=== PATIENT | female | born 1985 | race Caucasian/White ===

== ENCOUNTER 2021-04-02 22:23 | Emergency (ER) | payer MEDICAID, SELFPAY ==
[2021-04-02 22:26] VITALS: BP 130/78; PULSE 95; RESP 18; TEMP 35.9; O2SAT 100
--- NOTE | 2021-04-03 00:26 | ED.EAR ---
HPI - Ear Problem General Chief complaint: Ear Stated complaint: bilat ear pain, ST Time Seen by Provider: 04/02/21 23:39 History of Present Illness HPI Narrative: Patient is a 35-year-old female who presents ER with right ear pain. Worsening over the last 3 days. No numbness or tingling to the face but has some tingling in her tongue. No drainage from her ear. She has not submerged her head in a pool/hot tub/freshwater. No difficulty hearing. Pain worsens with manipulation. No fevers or chills or sweats. Review of Systems Constitutional: Constitutional: Denies chills and Denies fever(s) ENT: Denies nasal congestion and Denies sore throat Comments: Right ear pain, no change in hearing Respiratory: Respiratory: Denies cough and Denies dyspnea PMFSH Past Medical History Medical History (Updated 04/03/21 @ 00:32 by Jorge Obrien MD) Anxiety Otitis externa Surgical History Surgical History (Updated 04/03/21 @ 00:27 by Jorge Obrien MD) No history of previous surgery Exam Narrative: Exam Narrative: GENERAL: Well-appearing, well-nourished, and in no acute distress. HEAD: Normocephalic, atraumatic. EYES: PERRL and EOMI. ENT: Mucous membranes moist. No pharyngeal erythema or tonsillar exudate. No vesicles or rash to the face. Right external ear appears normal with normal internal auditory canal and opaque tympanic membrane. No vesicles or pustules seen within the ear canal. Mastoid on the right side nontender and is not swollen. Normal left ear exam. NEURO: Alert and oriented x3. PSYCH: Normal mood and affect. Course Course Emergency Course: We will treat with antibiotics for internal and external ear infection given pain with manipulation. Will give ENT referral if symptoms or not improving. Vital Signs Vital signs: Vital Signs Temperature 96.7 F L 04/02/21 22: Pulse Rate 95 04/02/21 22: Respiratory Rate 18 04/02/21 22: Blood Pressure 130/78 04/02/21 22: Pulse Oximetry 100 04/02/21 22: Temperature 96.7 F L 04/02/21 22: Pulse Rate 95 04/02/21 22: Respiratory Rate 18 04/02/21 22:26 Blood Pressure 130/78 04/02/21 22:26 Pulse Oximetry 100 04/02/21 22:26 Medical Decision Making Vital Signs Vital Signs: Vital Signs Temperature 96.7 F L 04/02/21 22:26 Pulse Rate 95 04/02/21 22:26 Respiratory Rate 18 04/02/21 22:26 Blood Pressure 130/78 04/02/21 22:26 Pulse Oximetry 100 04/02/21 22:26 Temperature 96.7 F L 04/02/21 22:26 Pulse Rate 95 04/02/21 22:26 Respiratory Rate 18 04/02/21 22:26 Blood Pressure 130/78 04/02/21 22:26 Pulse Oximetry 100 04/02/21 22:26 Lab Data Labs: Strep Screen Presumptive Negative *(Reference Range: Negative)* Discharge Plan Discharge Clinical Impression: Otitis externa Patient Disposition: Home, Self-Care Condition: Stable Instructions: Antibiotic Form, Ear Infection (GEN) Additional Instructions: Return to the ER if you have worsening pain, you cannot hear, you have severe uncontrolled dizziness, you have additional concerns. If your symptoms are not improving with the medications you may need to follow-up with ENT. Prescriptions: New amoxicillin-pot clavulanate [Augmentin] 875-125 mg tablet 1 tablet PO Q12H Qty: 14 RF: 0 ciprofloxacin-dexamethasone [Ciprodex] 0.3-0.1 % drops,suspension 4 drp RIGHT EAR Q12H 7 Days Qty: 7.5 RF: 0 hydrocodone-acetaminophen 5-325 mg tablet 1 tablet PO Q6H PRN (Reason: pain) Qty: 12 RF: 0 Follow-up/Referrals: Jack Garduno MD [Physician] - 1 Week PHYSICIAN NOT ON STAFF,NONSTAFF [Primary Care Provider] -
[2021-04-03 00:52] VITALS: BP 100/68; PULSE 95; RESP 18; TEMP 36.8; O2SAT 100
== END 2021-04-03 00:54 | disposition home or self-care (01) ==
PROVIDERS: Emergency Provider Emergency Medicine
DX: H60.91 Unspecified otitis externa, right ear (principal)
CPT/HCPCS: 87081; 87880; 99283

== ENCOUNTER 2023-05-31 15:17 | Inpatient (IN) | payer OTHER, MEDICAID, SELFPAY ==
[2023-05-31] VITALS (10 sets, daily range): BP systolic 100–123; BP diastolic 63–87; PULSE 76–120; RESP 16–25; TEMP 36.4–37.2; O2SAT 97–100
--- NOTE | ~2023-05-31 | US_ITS ---
EXAMINATION: US renal BI DATE: 06/01/2023 14:05 INDICATION: andres TECHNIQUE: Multiple grayscale and Doppler ultrasound images of the kidneys were obtained. COMPARISON: CTA chest abdomen pelvis 05/31/2023 FINDINGS: The right kidney measures 11.1 x 3.4 x 4.0 cm. The left kidney measures 9.5 x 3.8 x 5.4 cm. The kidne ys demonstrate normal parenchymal echogenicity. There is no hydronephrosis. The bladder is normal. IMPRESSION: Unremarkable renal sonogram findings. Reviewed, dictated and finalized at location K.
--- NOTE | ~2023-05-31 | XR_ITS ---
Portable chest x-ray Comparison: None Clinical History: Leukocytosis Findings: NG tube in satisfactory position. Lungs are clear, without focal consolidation or pleural effusion. Cardiomediastinal silhouette is unremarkable. Bones and soft tissues are unremarkable. Impression: Clear lungs. NG tube in place. Reviewed, dictated and finalized at location . Impression: Clear lungs. NG tube in place.
--- NOTE | ~2023-05-31 | CT_ITS ---
EXAMINATION: CTA chest abdomen pelvis DATE: 05/31/2023 18:45 CDT INDICATION: Mottled lower extremities TECHNIQUE: Computed tomographic angiography (CTA) of the chest, abdomen, and pelvis was performed wit hout and with 100 mL Omnipaque-350 intravenous contrast. The dose-length product was 649.46 mGy-cm. M aximum intensity projection 3D-reconstructions of the aorta and other arteries were constructed by zeus zuleta technologist on a separate workstation. Automated exposure control and iterative reconstruction theodore hnique were employed. COMPARISON: None. FINDINGS: CHEST CTA: Thoracic aorta is normal without evidence for aneurysm or dissection. No evidence for pulmonary embol ism. No significant pleural or pericardial effusion. No thoracic lymphadenopathy. There is a 3 mm lef t upper lobe nodule, likely benign. No focal pneumonia. No endobronchial lesions. No pneumothorax. No mediastinal lymphadenopathy. ABDOMEN AND PELVIS CTA: Fatty infiltration of the liver. The spleen, pancreas, adrenal glands and kidneys are unremarkable. S tatus post cholecystectomy. The celiac axis, SMA and renal arteries are patent. No evidence for aorti c aneurysm or dissection. No lymphadenopathy. There are multiple collateral vessels in the left upper abdomen, nonspecific. Nonobstructive bowel pattern. No free air or free fluid. There are cholecystec itzel clips. No significant bone or joint abnormality. There are accessory splenules. There is scolios is. IMPRESSION: 1. No significant vascular abnormality. No acute abnormality of the chest or abdomen. Reviewed, dictated and finalized at location A. IMPRESSION: 1. No significant vascular abnormality. No acute abnormality of the chest or ab domen.
--- NOTE | ~2023-05-31 | XR_ITS ---
EXAMINATION: XR lumbar puncture diagnostic DATE: 06/03/2023 10:23 INDICATION: Altered mental status. White matter disease. TECHNIQUE: Consent was provided by a family member. The skin overlying the L3-L4 level was prepped an d draped in usual sterile fashion. Subcutaneous 1% lidocaine was used for local anesthesia. A 20 ga uge spinal needle was advanced under fluoroscopic guidance. The needle was removed and the entry site was cleaned and dressed. There were no immediate complications. Fluoroscopy exposure time was 0.0 m inutes. The total number of images was 1. FINDINGS: Real-time fluoroscopy demonstrates the needle at the L3-L4 level. The opening pressure was 15 cm water (Normal range is variably defined as 6-20 cm water and up to 25 cm water in obese patient s. Pressure >25 cm water is one of the modified Dandy criteria for idiopathic intracranial hypertensi on). 14 mL of clear, colorless fluid was collected in 4 tubes. IMPRESSION: 1. Successful fluoro-guided lumbar puncture. Reviewed, dictated and finalized at location A.
--- NOTE | ~2023-05-31 | XR_ITS ---
Supine portable view of the abdomen Clinical history: NG tube placement Findings: NG tube is in satisfactory position. Bowel gas pattern is nonspecific. No evidence for obst ruction or free air. No abnormal mass lesion or calcification is seen. Cholecystectomy clips are pres ent. Osseous structures are intact. Impression: NG tube in satisfactory position. Reviewed, dictated and finalized at location . Impression: NG tube in satisfactory position.
--- NOTE | ~2023-05-31 | MR_ITS ---
EXAMINATION: MR brain/brain stem wo/w con DATE: 06/02/2023 08:22 INDICATION: Altered mental status. Abnormal head CT. TECHNIQUE: Magnetic resonance imaging (MRI) of the brain and brainstem was performed without and with 12 mL MultiHance intravenous contrast. COMPARISON: Head CT 05/31/2023 FINDINGS: There is widespread increased T2-weighted signal intensity involving the cerebral white mat ter. There is no acute ischemic infarct, intracranial hemorrhage, or abnormal mass lesion. The ventri cles are normal in size. The orbits are normal. The mastoid air cells are normal. The paranasal sinus es are clear. IMPRESSION: 1. Extensive nonspecific cerebral white matter disease. The differential diagnosis includes posterior reversible encephalopathy syndrome (PRES), progressive multifocal leukoencephalopathy, HIV encephalo yefri, dysmyelinating disease, premature chronic small vessel ischemic disease (if the patient has se winifred cardiovascular risk factors), demyelinating disease such as multiple sclerosis, drug abuse, vasc ulitis, or reactive astrocytosis (gliosis) secondary to nonspecific etiology. Reviewed, dictated and finalized at location E. IMPRESSION: 1. Extensive nonspecific cerebral white matter disease. The differential diagno sis includes posterior reversible encephalopathy syndrome (PRES), progressive m ultifocal leukoencephalopathy, HIV encephalopathy, dysmyelinating disease, geovanna ature chronic small vessel ischemic disease (if the patient has severe cardiova scular risk factors), demyelinating disease such as multiple sclerosis, drug ab use, vasculitis, or reactive astrocytosis (gliosis) secondary to nonspecific et iology.
--- NOTE | ~2023-05-31 | MR_ITS ---
EXAMINATION: MR brain/brain stem wo/w con DATE: 06/12/2023 09:41 INDICATION: Confusion. TECHNIQUE: Magnetic resonance imaging (MRI) of the brain and brainstem was performed without and with 12 mL MultiHance intravenous contrast. COMPARISON: Brain MRI 06/02/2023 FINDINGS: There is widespread increased T2-weighted signal intensity in the cerebral white matter. Th ere is no intracranial hemorrhage, acute infarction, or abnormal intracranial mass lesion. The ventri cles are normal in size. The orbits are normal. There is mucosal thickening in the paranasal sinuses. The mastoid air cells are normal. IMPRESSION: 1. Stable extensive nonspecific cerebral white matter disease. The differential diagnosis includes dr ug abuse/toxic exposure, demyelinating disease, and vasculitis. Reviewed, dictated and finalized at location A. IMPRESSION: 1. Stable extensive nonspecific cerebral white matter disease. The differential diagnosis includes drug abuse/toxic exposure, demyelinating disease, and vascu litis.
--- NOTE | ~2023-05-31 | XR_ITS ---
EXAMINATION: XR_[id number]_CR DATE: 06/07/2023 11:47 INDICATION: Nasogastric tube placement. TECHNIQUE: A supine view of the abdomen was obtained. COMPARISON: CT abdomen and pelvis 05/31/2023 FINDINGS: There are no dilated loops of bowel. The nasogastric tube tip is in the distal stomach. Georgi gical clips in the right upper quadrant are likely from cholecystectomy. IMPRESSION: 1. Nasogastric tube tip in the stomach. Reviewed, dictated and finalized at location B.
--- NOTE | ~2023-05-31 | CT_ITS ---
EXAMINATION: CT BRAIN W/O DATE: 05/31/2023 18:39 INDICATION: TECHNIQUE: Computed tomography (CT) of the head was performed without intravenous contrast. The dose- length product was 605.33 mGy-cm. COMPARISON: No prior studies for comparison. FINDINGS: Normal brain parenchymal volume for age. Normal amador-white differentiation. There are subtl e bilateral symmetric hypodensities of the frontal lobes. No acute intracranial hemorrhage, mass or m ass effect.. No ventriculomegaly or midline shift. Midline sagittal images demonstrate a normal corpus callosum, c raniovertebral junction and sella turcica. Basilar cisterns are patent. Paranasal sinuses and mastoids are pneumatized. No depressed skull fractures. IMPRESSION: 1. Subtle bilateral symmetric hypodensities of the frontal lobe white matter which may represent norm al variant, although underlying parenchymal abnormality is not excluded. Recommend correlation with M RI without and with contrast. Reviewed, dictated and finalized at location A. IMPRESSION: 1. Subtle bilateral symmetric hypodensities of the frontal lobe white matter wh ich may represent normal variant, although underlying parenchymal abnormality i s not excluded. Recommend correlation with MRI without and with contrast.
--- NOTE | 2023-05-31 15:58 | ECG_ITS ---
Measurements Intervals [place] Rate: 94 P: 59 GA: 140 QRS: 75 QRSD: 82 T: 39 QT: 392 QTc: 492 Interpretive Statements SINUS RHYTHM BORDERLINE T WAVE ABNORMALITY- INFERIOR LEADS BASELINE ARTIFACT- I, II, III, AVR, AVL, AVF, V2 BORDERLINE ECG NO PREVIOUS ECG AVAILABLE FOR COMPARISON Electronically Signed On 05-31-2023 20:28:20 CDT by Angel Lin D.O.
[2023-05-31] MEDS: SODIUM CHLORIDE 0.9% IV 2,000 ML 999 ML IV CONT (16:30)
[2023-05-31] MEDS: cefTRIAXone 2 GM/NS 100 ML 2 GM/100 ML BAG IVPB (17:20)
[2023-05-31 17:25] LABS: Hematocrit 43.9 % (37.0-47.0); Hemoglobin 14.5 g/dL (12.0-15.0); Mean Corpuscular Hemoglobin 31.6 pg (26-34); Mean Corpuscular Volume 95.6 fl (80-100); Mean Platelet Volume 10.3 fl (7.4-10.4); Platelet Count Result 388 k/mm3 (150-375); Red Blood Count 4.59 M/mm3 (4.2-5.4); Red Cell Distribution Width 13.1 % (11.5-14.5); White Blood Count 22.3 K/mm3 (4.5-10.0)
[2023-05-31 17:34] LABS: Alanine Aminotransferase 24 U/L (6-35); Albumin Level 5.2 g/dL (3.5-5.1); Alkaline Phosphatase 70 U/L (38-126); Anion Gap 21 mmol/L (8-16); Aspartate Amino Transferase 28 U/L (14-36); Bilirubin,Total 0.7 mg/dL (0.2-1.3); Blood Urea Nitrogen 49 mg/dL (7-17); Carbon Dioxide 21 mmol/L (22-30); Chloride 98 mmol/L (98-107); Estimated CRCL calculation 38 ml/min; Estimated Glomerular Filt Rate 33; Glucose 94 mg/dL (65-110); Potassium 3.7 mmol/L (3.4-5.0); Sodium 140 mmol/L (137-145)
[2023-05-31 17:35] LABS: Acetaminophen < 10 ug/mL (10-30); Lactic Acid Reflex 2.8 mmol/L (0.7-2.0); Salicylate < 1.0 mg/dL (2-20)
[2023-05-31 17:38] LABS: CRP 0.9 mg/dL (<1.0); INR 1.1; Prothrombin Time 14.6 Seconds (11.1-14.7)
[2023-05-31 17:39] LABS: Partial Thromboplastin Time 25.9 SECONDS (22.3-36.8)
[2023-05-31 17:40] LABS: Appearance Urine Cloudy (Clear); Bacteria Urine 1+ /hpf; Bilirubin Urine Negative (Negative); Blood Urine Negative (Negative); Color Urine Yellow (Yellow); Glucose Urine UA Negative (Negative); Hyaline Casts Urine Present /lpf; Ketones Urine Negative (Negative); Leukocyte Esterase Ur Trace LEU/UL (Negative); Nitrate Urine Negative (Negative); Non Pathogenic Casts >20; Protein Urine 1+ mg/dL (Negative); RBC Urine 0-2 /hpf (0-2); Specific Grav Ur 1.024 (1.001-1.035); Squamous Epithelial Cell Urine Few /hpf (Few); Urobilinogen Urine 0.2 mg/dL (<2.0)
[2023-05-31 17:41] LABS: Add Urine Microscopic? YES
[2023-05-31 17:46] LABS: Amphetamine Screen Urine Negative (Negative); Barbiturate Screen Urine Positive (Negative); Benzodiazepines Screen Urine Negative (Negative); Cannabinoid Screen Urine Negative (Negative); Cocaine Screen Urine Negative (Negative); Methadone Screen Urine Negative (Negative); Opiate Screen Urine Negative (Negative); Phencyclidine Screen Urine Negative (Negative)
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
[2023-05-31 17:57] LABS: Lymphocytes Absolute Manual 0.66 K/mm3 (1.1-4.5); Monocytes Absolute Manual 0.89 K/mm3 (0.1-0.90); Monocytes Percent Manual 4 % (3-9); Neutrophils Percent Manual 93 % (46-73); Schistocytes None Seen (NORMAL); Total Cells Counted 100
[2023-05-31 18:15] LABS: Pregnancy On Board Control Positive; Urine Pregnancy Test Negative
--- NOTE | 2023-05-31 19:52 | PM.IMHP ---
H&P: HPI History of Present Illness Date/Time: 05/31/23 19:52 Chief Complaint: Altered mental status Narrative: This is a 37-year-old female with past medical history significant for alcohol dependence, recreational drugs abuse, patient was brought to the emergency room due to altered mental status erratic behavior according to roommate. Most of the history has been obtained upon medical records and emergency room. Apparently patient has had a long history of substance abuse alcohol and recreational drugs. Patient is obtunded at the time of my visit unable to give any history. Preliminary workup was significant for urinalysis was found to have numerous WBCs present, CBC showed a leukocyte count of 22,000, lactic acid of 2.8. CT of the brain was reported as: EXAMINATION: CT BRAIN W/O DATE: 05/31/2023 18:39 INDICATION: TECHNIQUE: Computed tomography (CT) of the head was performed without intravenous contrast. The dose-length product was 605.33 mGy-cm. COMPARISON: No prior studies for comparison. FINDINGS: Normal brain parenchymal volume for age. Normal amador-white differentiation. There are subtle bilateral symmetric hypodensities of the frontal lobes. No acute intracranial hemorrhage, mass or mass effect.. No ventriculomegaly or midline shift. Midline sagittal images demonstrate a normal corpus callosum, craniovertebral junction and sella turcica. Basilar cisterns are patent. Paranasal sinuses and mastoids are pneumatized. No depressed skull fractures. IMPRESSION: 1. Subtle bilateral symmetric hypodensities of the frontal lobe white matter which may represent normal variant, although underlying parenchymal abnormality is not excluded. Recommend correlation with MRI without and with contrast. EXAMINATION: CTA chest abdomen pelvis DATE: 05/31/2023 18:45 CDT INDICATION: Mottled lower extremities TECHNIQUE: Computed tomographic angiography (CTA) of the chest, abdomen, and pelvis was performed without and with 100 mL Omnipaque-350 intravenous contrast. The dose-length product was 649.46 mGy-cm. Maximum intensity projection 3D-reconstructions of the aorta and other arteries were constructed by the technologist on a separate workstation. Automated exposure control and iterative reconstruction technique were employed. COMPARISON: None. FINDINGS: CHEST CTA: Thoracic aorta is normal without evidence for aneurysm or dissection. No evidence for pulmonary embolism. No significant pleural or pericardial effusion. No thoracic lymphadenopathy. There is a 3 mm left upper lobe nodule, likely benign. No focal pneumonia. No endobronchial lesions. No pneumothorax. No mediastinal lymphadenopathy. ABDOMEN AND PELVIS CTA: Fatty infiltration of the liver. The spleen, pancreas, adrenal glands and kidneys are unremarkable. Status post cholecystectomy. The celiac axis, SMA and renal arteries are patent. No evidence for aortic aneurysm or dissection. No lymphadenopathy. There are multiple collateral vessels in the left upper abdomen, nonspecific. Nonobstructive bowel pattern. No free air or free fluid. There are cholecystectomy clips. No significant bone or joint abnormality. There are accessory splenules. There is scoliosis. IMPRESSION: 1. No significant vascular abnormality. No acute abnormality of the chest or abdomen. Patient is been admitted for further evaluation management and treatment. Review of Systems Review of Systems: ROS unobtainable: Yes unobtainable due to mental status (Obtundation.) [facility] Past Medical History Medical History (Updated 06/01/23 @ 00:09 by Claire Sanchez MD) Anxiety Idiopathic intracranial hypertension Otitis externa Seizure Surgical History Surgical History No history of previous surgery Family History Family History (Updated 05/31/23 @ 22:22 by Sallie Murphy RN) Grandparent Acute myocardial infarction Chronic obstructive pulmon
[2023-05-31 20:21] LABS: Reflex Lactic Acid Yes or No Add Lactic
--- NOTE | 2023-05-31 22:08 | ADMGEN ---
This patient, Fredo Awad, was admitted to Medical Room 347-. Patient/family oriented to hospital policies and general routines including ID bracelet, bed and alarms, visiting hours, pain management, procedures, bathroom and other care routines, personal items, smoking policy, room service/diet, and visiting hours. Information on how to activate the Rapid Response Team has been discussed. Patient/Family are encouraged to report perceived risks to care and to ask questions if they do not understand what they are told or what they should do.
[2023-05-31] MEDS: LACTATED RINGERS 1,000 ML 125 ML IV CONT (22:10)
[2023-05-31 23:13] LABS: Lactic Acid 2.5 mmol/L (0.7-2.0)
[2023-06-01] VITALS (11 sets, daily range): BP systolic 92–112; BP diastolic 41–64; PULSE 80–114; RESP 16–18; TEMP 36.4–36.8; O2SAT 99–100
[2023-06-01 00:15] LABS: Glucose Point of Care 104 mg/dl (65-105)
[2023-06-01] MEDS: chlordiazePOXIDE (*CRX) 25 MG CAPSULE 50 MG PO (00:28)
[2023-06-01] MEDS: DEXTROSE 5%/0.45% SOD CHL 1,000 ML 125 ML IV CONT (00:30)
[2023-06-01] MEDS: LORazepam INJ (*CRX) 2 MG/ML VIAL IV PUSH ×4 (00:33→20:21)
[2023-06-01 05:40] LABS: Basophils Percent Auto 0.1 % (0.2-1.2); Hematocrit 32.8 % (37.0-47.0); Hemoglobin 10.7 g/dL (12.0-15.0); Immature Granulocyte Absolute 0.12 K/mm3 (0.00-0.031); Immature Granulocyte Percent A 0.7 % (0-0.5); Lymphocytes Absolute Auto 1.45 K/mm3 (0.9-3.2); Lymphocytes Percent Auto 8.9 % (18.3-44.2); Mean Corpuscular HGB Conc 32.6 g/dl (32-36); Mean Corpuscular Hemoglobin 31.4 pg (26-34); Mean Corpuscular Volume 96.2 fl (80-100); Mean Platelet Volume 10.1 fl (7.4-10.4); Monocytes Absolute Auto 1.4 K/mm3 (0.1-0.6); Monocytes Percent Auto 8.7 % (2.6-8.5); Neutrophils Absolute Auto 13.2 K/mm3 (1.3-6.7); Neutrophils Percent Auto 81.6 % (45.5-73.1); Platelet Count Result 257 k/mm3 (150-375); Red Blood Count 3.41 M/mm3 (4.2-5.4); Red Cell Distribution Width 12.9 % (11.5-14.5); White Blood Count 16.2 K/mm3 (4.5-10.0)
[2023-06-01 06:27] LABS: Anion Gap 2 mmol/L (8-16); Blood Urea Nitrogen 25 mg/dL (7-17); Calcium 8.3 mg/dL (8.4-10.2); Carbon Dioxide 27 mmol/L (22-30); Chloride 104 mmol/L (98-107); Estimated CRCL calculation 101 ml/min; Estimated Glomerular Filt Rate > 60; Glucose 117 mg/dL (65-110); Potassium 3.4 mmol/L (3.4-5.0); Sodium 133 mmol/L (137-145)
[2023-06-01 06:49] LABS: Glucose Point of Care 113 mg/dl (65-105)
[2023-06-01] MEDS: VANCOMYCIN 1,250 MG/NS 250 ML 1,250 MG/250 ML BAG 166.67 MG IVPB ×2 (07:24→20:12)
[2023-06-01] MEDS: KCL 20MEQ/0.9% SOD CHL 1,000 ML 100 ML IV CONT ×2 (09:26→22:23)
[2023-06-01] MEDS: NICOTINE (*PBKC) 21 MG PATCH 1 PATCH TRANSDERM (09:34)
[2023-06-01] MEDS: THIAMINE HCL 200 MG/2 ML VIAL IV PUSH (09:41)
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
[2023-06-01 12:48] LABS: Glucose Point of Care 95 mg/dl (65-105)
[2023-06-01 18:16] LABS: Vancomycin Trough 13.4 ug/mL (10.0-20.0)
[2023-06-01 18:51] LABS: Glucose Point of Care 96 mg/dl (65-105)
[2023-06-01 23:47] LABS: Glucose Point of Care 73 mg/dl (65-105)
[2023-06-02] VITALS (9 sets, daily range): BP systolic 109–131; BP diastolic 59–68; PULSE 86–129; RESP 20–24; TEMP 36.5–37.4; O2SAT 99–100
[2023-06-02] MEDS: LORazepam INJ (*CRX) 2 MG/ML VIAL IV PUSH (01:06)
[2023-06-02 05:50] LABS: Estimated CRCL calculation 119 ml/min; Estimated Glomerular Filt Rate > 60
[2023-06-02 06:36] LABS: Glucose Point of Care 87 mg/dl (65-105)
[2023-06-02 07:36] LABS: Anion Gap 1 mmol/L (8-16); Blood Urea Nitrogen 15 mg/dL (7-17); Calcium 7.8 mg/dL (8.4-10.2); Carbon Dioxide 24 mmol/L (22-30); Chloride 109 mmol/L (98-107); Estimated CRCL calculation 119 ml/min; Estimated Glomerular Filt Rate > 60; Glucose 84 mg/dL (65-110); Potassium 3.3 mmol/L (3.4-5.0); Sodium 134 mmol/L (137-145)
[2023-06-02] MEDS: NICOTINE (*PBKC) 21 MG PATCH 1 PATCH TRANSDERM (09:34)
[2023-06-02] MEDS: THIAMINE HCL 200 MG/2 ML VIAL 100 MG IV PUSH (09:34)
[2023-06-02] MEDS: VANCOMYCIN 1,250 MG/NS 250 ML 1,250 MG/250 ML BAG 166.67 MG IVPB (09:41)
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
[2023-06-02 12:13] LABS: Glucose Point of Care 77 mg/dl (65-105)
[2023-06-02] MEDS: KCL 20MEQ/0.9% SOD CHL 1,000 ML 100 ML IV CONT (13:52)
[2023-06-02 17:21] LABS: CRP 2.1 mg/dL (<1.0)
[2023-06-02 17:50] LABS: Hepatitis B Surface Antigen Negative (Negative)
[2023-06-02 17:56] LABS: HAV RESULT Negative (Negative); Hepatitis B Core IgM Result Negative (Negative)
[2023-06-02 18:00] LABS: HIV 1/2 Ab P24 Ag Result Negative (Negative)
[2023-06-02 18:10] LABS: Glucose Point of Care 90 mg/dl (65-105)
[2023-06-02 18:19] LABS: Hepatitis C Virus Antibody Reactive (Negative)
[2023-06-02 20:19] LABS: Glucose Point of Care 103 mg/dl (65-105)
[2023-06-02] MEDS: VANCOMYCIN 1,250 MG/NS 250 ML 1,250 MG/250 ML BAG 166.7 MG IVPB (21:10)
[2023-06-03] VITALS (13 sets, daily range): BP systolic 111–127; BP diastolic 67–78; PULSE 75–116; RESP 16–20; TEMP 36.4–36.8; O2SAT 97–100; BMI 20.7
[2023-06-03] MEDS: KCL 20MEQ/0.9% SOD CHL 1,000 ML 100 ML IV CONT ×2 (00:40→17:52)
[2023-06-03] MEDS: LORazepam INJ (*CRX) 2 MG/ML VIAL 1 MG IV PUSH ×2 (01:04→20:51)
[2023-06-03 05:34] LABS: Glucose Point of Care 74 mg/dl (65-105)
[2023-06-03] MEDS: SODIUM CHLOR 3% 15 ML NEB (RESPIRATORY THERAPY) 6 ML INHALATION (05:35)
--- NOTE | 2023-06-03 06:17 | PCRCNOTE ---
No sputum obtained during sputum induction.
[2023-06-03 06:46] LABS: Hematocrit 32.5 % (37.0-47.0); Hemoglobin 10.8 g/dL (12.0-15.0); Mean Corpuscular HGB Conc 33.2 g/dl (32-36); Mean Corpuscular Hemoglobin 31.4 pg (26-34); Mean Corpuscular Volume 94.5 fl (80-100); Mean Platelet Volume 10.1 fl (7.4-10.4); Platelet Count Result 205 k/mm3 (150-375); Red Blood Count 3.44 M/mm3 (4.2-5.4); White Blood Count 7.2 K/mm3 (4.5-10.0)
[2023-06-03 07:20] LABS: Anion Gap 3 mmol/L (8-16); Blood Urea Nitrogen 7 mg/dL (7-17); Calcium 8.4 mg/dL (8.4-10.2); Carbon Dioxide 28 mmol/L (22-30); Chloride 103 mmol/L (98-107); Estimated CRCL calculation 119 ml/min; Estimated Glomerular Filt Rate > 60; Glucose 82 mg/dL (65-110); Potassium 3.6 mmol/L (3.4-5.0); Sodium 134 mmol/L (137-145)
[2023-06-03] MEDS: THIAMINE HCL 200 MG/2 ML VIAL 100 MG IV PUSH (08:30)
[2023-06-03 10:23] LABS: Glucose CSF 54 mg/dL (40-70); Total Protein CSF 37 mg/dL (12-60)
[2023-06-03 10:42] LABS: Appearance CSF Clear (Clear); CSF source CSF; Color CSF Colorless (Colorless); Nucleated Cell CSF 0 /uL (0-5); Red Blood Cell CSF 10 (0-2)
[2023-06-03 10:53] LABS: Neutrophils CSF 4 % (0-6)
[2023-06-03 10:54] LABS: Lymphocytes CSF 88 % (40-80); Monocytes CSF 8 % (15-45)
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
[2023-06-03 11:55] LABS: Glucose Point of Care 91 mg/dl (65-105)
[2023-06-03] MEDS: VANCOMYCIN 1,250 MG/NS 250 ML 1,250 MG/250 ML BAG 166.7 MG IVPB (12:11)
[2023-06-03 18:00] LABS: Glucose Point of Care 88 mg/dl (65-105)
[2023-06-03] MEDS: VANCOMYCIN 1,250 MG/NS 250 ML 1,250 MG/250 ML BAG 166 MG IVPB (20:49)
[2023-06-04] VITALS (10 sets, daily range): BP systolic 107–113; BP diastolic 64–70; PULSE 70–114; RESP 18–20; TEMP 36.7–36.9; O2SAT 95–100; BMI 10.0
[2023-06-04] MEDS: LORazepam INJ (*CRX) 2 MG/ML VIAL 1 MG IV PUSH ×3 (01:30→20:47)
[2023-06-04] MEDS: SODIUM CHLOR 3% 15 ML NEB (RESPIRATORY THERAPY) 6 ML INHALATION (06:04)
--- NOTE | 2023-06-04 06:25 | PCRCNOTE ---
Hypertonic saline neb given. Pt unable to follow commands and expectorate in a cup. RN aware
[2023-06-04 06:32] LABS: Glucose Point of Care 92 mg/dl (65-105)
[2023-06-04 08:09] LABS: Basophils Percent Auto 0.6 % (0.2-1.2); Eosinophils Absolute Auto 0.1 K/mm3 (0-0.3); Eosinophils Percent Auto 2.1 % (0-4.4); Hematocrit 34.5 % (37.0-47.0); Hemoglobin 11.6 g/dL (12.0-15.0); Immature Granulocyte Absolute 0.03 K/mm3 (0.00-0.031); Immature Granulocyte Percent A 0.4 % (0-0.5); Lymphocytes Percent Auto 22.4 % (18.3-44.2); Mean Corpuscular HGB Conc 33.6 g/dl (32-36); Mean Corpuscular Hemoglobin 31.7 pg (26-34); Mean Corpuscular Volume 94.3 fl (80-100); Mean Platelet Volume 9.9 fl (7.4-10.4); Monocytes Absolute Auto 0.7 K/mm3 (0.1-0.6); Monocytes Percent Auto 9.7 % (2.6-8.5); Neutrophils Absolute Auto 4.3 K/mm3 (1.3-6.7); Neutrophils Percent Auto 64.8 % (45.5-73.1); Platelet Count Result 234 k/mm3 (150-375); Red Blood Count 3.66 M/mm3 (4.2-5.4); Red Cell Distribution Width 12.2 % (11.5-14.5); White Blood Count 6.7 K/mm3 (4.5-10.0)
[2023-06-04 08:19] LABS: Alanine Aminotransferase 19 U/L (6-35); Albumin Level 3.5 g/dL (3.5-5.1); Alkaline Phosphatase 53 U/L (38-126); Anion Gap 5 mmol/L (8-16); Aspartate Amino Transferase 28 U/L (14-36); Bilirubin,Total 0.4 mg/dL (0.2-1.3); Blood Urea Nitrogen 5 mg/dL (7-17); Calcium 8.5 mg/dL (8.4-10.2); Carbon Dioxide 28 mmol/L (22-30); Chloride 103 mmol/L (98-107); Estimated CRCL calculation 119 ml/min; Estimated Glomerular Filt Rate > 60; Glucose 89 mg/dL (65-110); Potassium 3.9 mmol/L (3.4-5.0); Sodium 136 mmol/L (137-145)
[2023-06-04] MEDS: KCL 20MEQ/0.9% SOD CHL 1,000 ML 100 ML IV CONT (08:41)
[2023-06-04] MEDS: THIAMINE HCL 200 MG/2 ML VIAL 100 MG IV PUSH (08:43)
[2023-06-04 08:44] LABS: Vancomycin Trough 12.3 ug/mL (10.0-20.0)
[2023-06-04] MEDS: VANCOMYCIN 1,250 MG/NS 250 ML 1,250 MG/250 ML BAG 166 MG IVPB ×2 (10:17→20:42)
--- NOTE | 2023-06-04 11:18 | WPDNEUROLOGY ---
Neurology EEG Report General Information Date of Study: 07/04/23 TEST eeg DIAGNOSIS Traumatic brain injury versus seizure versus anoxia versus encephalopathy CONDITION OF RECORDING sleep EEG NUMBER [id number] CLINICAL HISTORY patient was brought in to the hospital for confusion and slept throughout the setup an tracing reportedly she was found walking around the apartment naked and not knowing where she was EEG DESCRIPTION background rhythm consists of low to medium voltage 3 to 4 hertz per 2nd delta admixed with low-voltage 15 to 18 hertz per 2nd beta activity with poor anterior-posterior gradient during wakefulness. Bilateral symmetrical sleep activity seen during sleep. Hyperventilation not done. Photic stimulation not done. Non paroxysmal. Nonfocal. Nonlateralizing. IMPRESSION Abnormal record due to the absence of a normal background rhythm and due to the presence of bihemispheric slow activity with no evidence of paroxysmal activity throughout the tracing these abnormalities could be suggestive of underlying organic or metabolic encephalopathy or postictal state clinical correlation recommended
[2023-06-04 12:33] LABS: Glucose Point of Care 88 mg/dl (65-105)
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
--- NOTE | 2023-06-04 13:22 | WPDNEURCNPN ---
Assessment and Plan Assessment and plan (1) Acute metabolic encephalopathy: Code(s): G93.41 - Metabolic encephalopathy Status: Acute (2) Alcohol dependence: Qualifiers: Substance use status: in withdrawal Complication of substance-induced condition: with unspecified complication Qualified Code(s): F10.239 - Alcohol dependence with withdrawal, unspecified Code(s): F10.20 - Alcohol dependence, uncomplicated Status: Acute (3) Sepsis: Qualifiers: Acute renal failure type: unspecified Sepsis acute organ dysfunction status: with acute organ dysfunction Sepsis type: sepsis due to unspecified organism Severe sepsis acute organ dysfunction type: acute renal failure Severe sepsis shock status: with septic shock Qualified Code(s): A41.9 - Sepsis, unspecified organism; R65.21 - Severe sepsis with septic shock; N17.9 - Acute kidney failure, unspecified Code(s): A41.9 - Sepsis, unspecified organism Status: Acute Plan encephalopathy in addition to the history of multiple drug abuse and alcohol abuse an MRI has documented extensive nonspecific white matter disease in lumbar puncture has been though the pressure was normal CSF was colorless with only 10 RBCs 88 lymphocytes and protein 37 cultures are pending antibiotics are being continued up until all the cultures are reported EEG is abnormal though no evidence of any paroxysmal activity Consult date: 06/04/23 HPI: Fredo Awad is a 37 year old female Admitted to the hospital through the emergency room for the complaints of change in the mental status EMS reported to the ER they were called by the family members for the reason patient was walking around naked and appearing confused she has walked up in the [facility] [place] it for the last 72 hours on arrival EMS reported the same she was able to ambulate and she was able to follow the commands she is known to be allergic to ibuprofen morphine sulfa she has ongoing history of anxiety, idiopathic intracranial hypertension, and seizures but no history of previous surgery initial exam in the emergency room was generally nonfocal considering the possibility of sepsis versus meningitis CT scan of the head was obtained which revealed bilateral symmetric hypodensities of the frontal lobe representing normal variant the further studies was suggest. MRI of the brain documented extensive nonspecific cerebral white matter disease raising the possibility of posterior reversible encephalopathy versus a progressive multifocal leukoencephalopathy or other infections as well lumbar puncture was done in the emergency room which documented pressure of 15. Review of Systems Review of Systems: 37 years old right-handed female in no obvious acute distress but appearing chronically ill head normocephalic with no cranial bruit ear nose throat examination normal neck supple with no meningeal signs no cervical bruits thyromegaly no lymphadenopathy heart regular lungs clear to auscultation with no rhonchi or crepitations abdomen is soft with no organomegaly neurologically she is arousable but obtunded does not follow all the verbal commands appropriately moves upper and lower extremities face symmetrical tongue in the oral cavity with no fasciculation motor examination revealed her to have ability to move both upper and lower extremities deep tendon reflexes sluggish plantars are downgoing PMFSH Past Medical History Medical History (Updated 06/03/23 @ 16:28 by RANJIT Martinez) Anxiety Idiopathic intracranial hypertension Otitis externa Seizure Surgical History Surgical History No history of previous surgery Family History Family History (Updated 05/31/23 @ 22:22 by Sallie Murphy RN) Grandparent Acute myocardial infarction Chronic obstructive pulmonary disease Congestive heart failure Diabetes mellitus Bipolar 1 disorder Mother Asthma
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
[2023-06-04 17:33] LABS: Glucose Point of Care 117 mg/dl (65-105)
[2023-06-05] VITALS (13 sets, daily range): BP systolic 104–118; BP diastolic 59–81; PULSE 72–130; RESP 14–18; TEMP 36.6–36.9; O2SAT 98–100
[2023-06-05 00:01] LABS: Glucose Point of Care 112 mg/dl (65-105)
[2023-06-05] MEDS: LORazepam INJ (*CRX) 2 MG/ML VIAL 1 MG IV PUSH ×3 (01:03→20:12)
[2023-06-05] MEDS: SODIUM CHLOR 3% 15 ML NEB (RESPIRATORY THERAPY) 6 ML INHALATION (05:47)
[2023-06-05 06:07] LABS: Basophils Absolute Auto 0.1 K/mm3 (0.0-0.1); Basophils Percent Auto 0.9 % (0.2-1.2); Eosinophils Absolute Auto 0.2 K/mm3 (0-0.3); Eosinophils Percent Auto 2.4 % (0-4.4); Hematocrit 34.3 % (37.0-47.0); Hemoglobin 11.5 g/dL (12.0-15.0); Immature Granulocyte Absolute 0.03 K/mm3 (0.00-0.031); Immature Granulocyte Percent A 0.5 % (0-0.5); Lymphocytes Absolute Auto 1.47 K/mm3 (0.9-3.2); Lymphocytes Percent Auto 23.1 % (18.3-44.2); Mean Corpuscular HGB Conc 33.5 g/dl (32-36); Mean Corpuscular Hemoglobin 31.3 pg (26-34); Mean Corpuscular Volume 93.5 fl (80-100); Mean Platelet Volume 10.2 fl (7.4-10.4); Monocytes Absolute Auto 0.7 K/mm3 (0.1-0.6); Neutrophils Percent Auto 62.1 % (45.5-73.1); Platelet Count Result 241 k/mm3 (150-375); Red Blood Count 3.67 M/mm3 (4.2-5.4); White Blood Count 6.4 K/mm3 (4.5-10.0)
[2023-06-05 06:14] LABS: Alanine Aminotransferase 18 U/L (6-35); Albumin Level 3.7 g/dL (3.5-5.1); Alkaline Phosphatase 48 U/L (38-126); Anion Gap 7 mmol/L (8-16); Aspartate Amino Transferase 23 U/L (14-36); Bilirubin,Total 0.5 mg/dL (0.2-1.3); Blood Urea Nitrogen 3 mg/dL (7-17); Calcium 8.6 mg/dL (8.4-10.2); Carbon Dioxide 24 mmol/L (22-30); Chloride 104 mmol/L (98-107); Estimated CRCL calculation 145 ml/min; Estimated Glomerular Filt Rate > 60; Glucose 101 mg/dL (65-110); Potassium 3.8 mmol/L (3.4-5.0); Sodium 135 mmol/L (137-145)
[2023-06-05] MEDS: THIAMINE HCL 200 MG/2 ML VIAL 100 MG IV PUSH (08:13)
[2023-06-05 09:20] LABS: Glucose Point of Care 90 mg/dl (65-105)
[2023-06-05] MEDS: VANCOMYCIN 1,250 MG/NS 250 ML 1,250 MG/250 ML BAG 166 MG IVPB ×2 (11:57→21:38)
[2023-06-05 12:40] LABS: Glucose Point of Care 96 mg/dl (65-105)
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
[2023-06-05 14:08] LABS: Cryptococcus Antigen Not Detected (Not Detected); Cryptococcus Specimen Source CSF
[2023-06-05 14:57] LABS: Hepatitis C RNA, Quant PCR <15 IU/mL
[2023-06-05] MEDS: cefTRIAXone 2 GM/NS 100 ML 2 GM/100 ML BAG IVPB (17:19)
[2023-06-05 17:54] LABS: Glucose Point of Care 109 mg/dl (65-105)
[2023-06-05 20:58] LABS: Glucose Point of Care 104 mg/dl (65-105)
[2023-06-06] VITALS (12 sets, daily range): BP systolic 89–122; BP diastolic 59–81; PULSE 68–129; RESP 16–21; TEMP 36.6–37.7; O2SAT 96–100
[2023-06-06] MEDS: LORazepam INJ (*CRX) 2 MG/ML VIAL 1 MG IV PUSH (00:39)
[2023-06-06] MEDS: LORazepam INJ (*CRX) 2 MG/ML VIAL 0.5 MG IV PUSH (01:43)
--- NOTE | 2023-06-06 02:35 | ECG_ITS ---
Measurements Intervals [place] Rate: 133 P: 69 [place]: 113 QRS: 83 QRSD: 75 T: 11 QT: 288 QTc: 429 Interpretive Statements SINUS TACHYCARDIA WITH SHORT [place] INTERVAL NONSPECIFIC T-WAVE ABNORMALITY ABNORMAL RHYTHM ECG COMPARED TO ECG 05/31/2023 20:08:42 SINUS TACHYCARDIA NOW PRESENT T-WAVE ABNORMALITY NOW PRESENT Electronically Signed On 06-06-2023 10:17:23 CDT by Lizbeth Reese M.D.
[2023-06-06] MEDS: SODIUM CHLORIDE 0.9% IV 1,000 ML 999 ML IV CONT (03:27)
[2023-06-06] MEDS: LORazepam INJ (*CRX) 2 MG/ML VIAL IV PUSH (03:28)
[2023-06-06 03:58] LABS: Basophils Absolute Auto 0.1 K/mm3 (0.0-0.1); Basophils Percent Auto 0.6 % (0.2-1.2); Eosinophils Absolute Auto 0.1 K/mm3 (0-0.3); Eosinophils Percent Auto 0.9 % (0-4.4); Hematocrit 35.8 % (37.0-47.0); Hemoglobin 12.2 g/dL (12.0-15.0); Immature Granulocyte Absolute 0.05 K/mm3 (0.00-0.031); Immature Granulocyte Percent A 0.5 % (0-0.5); Lymphocytes Absolute Auto 1.32 K/mm3 (0.9-3.2); Lymphocytes Percent Auto 13.3 % (18.3-44.2); Mean Corpuscular HGB Conc 34.1 g/dl (32-36); Mean Corpuscular Hemoglobin 31.6 pg (26-34); Mean Corpuscular Volume 92.7 fl (80-100); Neutrophils Absolute Auto 7.4 K/mm3 (1.3-6.7); Neutrophils Percent Auto 74.7 % (45.5-73.1); Platelet Count Result 275 k/mm3 (150-375); Red Blood Count 3.86 M/mm3 (4.2-5.4); Red Cell Distribution Width 12.2 % (11.5-14.5)
[2023-06-06] MEDS: THIAMINE 500 MG/NS 100 ML 500 MG/100 ML BAG 200 MG IVPB ×3 (04:02→21:29)
[2023-06-06 04:09] LABS: Alanine Aminotransferase 21 U/L (6-35); Albumin Level 4.3 g/dL (3.5-5.1); Alkaline Phosphatase 65 U/L (38-126); Anion Gap 9 mmol/L (8-16); Aspartate Amino Transferase 27 U/L (14-36); Bilirubin,Total 0.5 mg/dL (0.2-1.3); Blood Urea Nitrogen 4 mg/dL (7-17); Calcium 9.2 mg/dL (8.4-10.2); Carbon Dioxide 25 mmol/L (22-30); Chloride 100 mmol/L (98-107); Estimated CRCL calculation 145 ml/min; Estimated Glomerular Filt Rate > 60; Glucose 103 mg/dL (65-110); Potassium 3.7 mmol/L (3.4-5.0); Sodium 134 mmol/L (137-145)
[2023-06-06 04:10] LABS: Lactic Acid Reflex 1.1 mmol/L (0.7-2.0)
[2023-06-06 05:02] LABS: Thyroid Stimulating Hormone Reflex 0.877 uIU/mL (0.465-4.68)
[2023-06-06 05:16] LABS: Folic Acid 12.7 ng/mL (2.76->20)
--- NOTE | 2023-06-06 05:17 | PM.EVENT ---
Event Note Event Note Event Note: I was on the floor evaluating another patient when nursing staff. Me. The patient has been having tachycardia all night with intermittent bouts of increasing tachycardia. As the night progresses patient was persistently more tachycardic. When I went to evaluate the telemetry patient actually had marked amount of artifact on telemetry. I was concerned that the patient may be seizing given the nature of the artifact. I went to evaluate the patient in the patient was having marked tremors. She was rigid with tonic clonic activity. Patient seemed to have tonic clonic activity of the left upper and lower lower extremity with the extremity held in extension but the wrist held in flexion and fist closed. Patient was not responsive to painful stimuli for approximately 1 minute. By the time the stat dose of Ativan at arrived and was being administered the patient started to become responsive and was actually reaching for her gown. She was still not following commands which according to nursing staff seems to be her baseline since she has come to the hospital. Her pupils were equal dilated and sluggishly reactive. However nursing staff reports that her Ativan dose was decreased recently with parameters changed. Since the change in her Ativan the nurses taking care for for the last 3 nights has noticed that the patient is far more tremulous and agitated. Her CIWA score was 15 but patient is difficult to assess due to encephalopathy. The patient had required a total of 2.5 mg of p.r.n. Ativan prior to my evaluation. I given additional 2 mg of Ativan. Patient's movements were more fluid after Ativan administration. The patient's heart rate did improve down to 120 from prior 130s to 140s. EKG was obtained which confirmed sinus rhythm but difficult and interpreted due to artifact. Patient is having q.6 hours Accu-Cheks that were euglycemic. On review of the chart the patient being evaluated for encephalopathy possibly due to anoxic brain injury, traumatic brain injury the demyelinating process versus infectious process. Patient does have history of drug abuse and possible history of alcohol abuse. The patient is getting 100 mg at thiamin daily since stay 2 or 3 of hospitalization. Nursing staff tells me that the patient was on maintenance IV fluids but these were discontinued over 24 hours ago. On review of nursing documentation the patient has not had any oral intake for the last 48 hours. Nursing staff tells me the patient was previously having extremely large amounts of urine output but her urine output over the last shift is only been 350 mL +1 month unmeasured large void. Urine has been measured by a pure wick catheter. The patient has been afebrile. On gross appearance of her urine studies not appear to have abnormal urine. She has not any respiratory distress. She was lay a bed with head of bed elevated to about 10?. I was unable to assess patient's mucous membranes as she was holding her jaw and a rigid position it was unable to further open her mouth. Her teeth had thick dental plaquing. Ativan did improve the patient's heart rate down to the 120s from prior 130s to 140s. Given her decreased oral intake and decreased urine output has soon patient was dehydrated. I did give the patient a L fluid bolus which improved patient's heart rate down to between 80 and 100. Stat labs were obtained including CBC, CMP, lactic acid, B12, folic acid, B1 and TSH. CBC and electrolyte panel were unchanged. Lactic acid was normal. Remainder of labs were pending. I did change the patient's thiamin dosing to high-dose thiamin of 500 mg t.i.d. for 5 days. As this medication will not harm the patient and may help with encephalopathy. I am still suspicious that the patient may be having a seizure activity. However, symptoms could be due to drug/alcohol withdrawal or prior traumatic brain injury as mentioned above. Will defer whether to start
[2023-06-06] MEDS: cefTRIAXone 2 GM/NS 100 ML 2 GM/100 ML BAG IVPB ×2 (05:35→18:56)
[2023-06-06 06:00] LABS: Glucose Point of Care 94 mg/dl (65-105)
--- NOTE | 2023-06-06 06:11 | PC.NURSE ---
During the shift, the patients was having increased tachycardia that had been sustaining unlike prior shifts. ROLLER REPAIRER was first notified in the beginning of the shift and orders were obtained. Patients tachycardia had resolved before the new PRN medication was given. Continued to monitor patients condition. After patients second set of Neuro checks, CIWAs and managment medications were given patients Tachycardia returned, Additional PRN was administered that was obtained earlier in the shift. Patients tachycardia had decreased but not fully resolved. At this time the MD was notifed as they had come to the unit for another admission. Face to Face assessments, additional medications, lab work and tests were preformed at this time. Additional details are relayed in the MDs note
[2023-06-06] MEDS: VANCOMYCIN 1,250 MG/NS 250 ML 1,250 MG/250 ML BAG 166 MG IVPB (08:32)
--- NOTE | 2023-06-06 09:37 | PC.NURSE ---
Patient transferred to IMU per bed at 0927. Report given to Susan LILLY.
--- NOTE | 2023-06-06 10:34 | PC.NURSE ---
Patient admitted to ICU room 7 at 0936. Patient brought by bed. Patient oriented to room. Call light within reach and bed alarms set. This RN to continue patient care.
--- NOTE | 2023-06-06 11:06 | PCNFU ---
Nutrition Follow-Up Complete: Inadequate oral intake related to mental status as evidenced by NPO 3 days. Oral intake to improve to at least 50% meals and supplements Safe swallowing Pt current nutrition is Regular. Last recorded weight is 60 kg. Bowel Motility: No BM reported. Labs Reviewed: Cr 0.4,Na 134, BUN 4 Meds Noted:Rocephin, Thiamine,Vancomycin Skin: WNL Additional Notes: Patient is transfer from medical floor. Diet has been regular with Ensure Clear TID. Patient had no oral intake reported on 06/05. Patient has been assist with meals. Nursing reports patient has been very sleepy. Recommend: speech evulation for safe swallowing. Monitoring swallowing function, intakes, labs, weights, supplement tolerance, plan of care Follow up in 3 days
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
--- NOTE | 2023-06-06 11:20 | PCOTNOTE ---
Patient has been transferred out of her room this A.M. for higher acuity of care due to a decline in Patient;s condition. Patient not to be seen for therapy services at this time.
[2023-06-06] MEDS: DEXTROSE 5%/0.9% SOD CHL 1,000 ML 70 ML IV CONT (12:00)
[2023-06-06] MEDS: levETIRAcetam 500MG/NACL 100ML 500 MG/100 ML BAG 400 MG IVPB ×2 (12:00→21:27)
[2023-06-06 12:21] LABS: Glucose Point of Care 99 mg/dl (65-105)
--- NOTE | 2023-06-06 12:26 | WPDNEUROPN ---
Progress Note: A&P Assessment and Plan (1) Acute metabolic encephalopathy: Code(s): G93.41 - Metabolic encephalopathy Status: Acute (2) Alcohol dependence: Qualifiers: Substance use status: in withdrawal Complication of substance-induced condition: with unspecified complication Qualified Code(s): F10.239 - Alcohol dependence with withdrawal, unspecified Code(s): F10.20 - Alcohol dependence, uncomplicated Status: Acute (3) UTI (urinary tract infection): Qualifiers: Hematuria presence: with hematuria Urinary tract infection type: acute cystitis Qualified Code(s): N30.01 - Acute cystitis with hematuria Code(s): N39.0 - Urinary tract infection, site not specified Status: Acute Plan Ms. Awad is a 37 year old female with a history of polysubstance abuse and alcohol dependence presenting with encephalopathy. MRI brain shows extensive white matter disease that is suggest of leukoencephalopathy of undetermined etiology. There was no contrast enhancement to suggest active inflammation or infection. CSF studies were also not suggestive of infection. She is not on any medications that would cause PRES and her blood pressure has not been elevated during this admission. 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 Course has been complicated by possible seizure. - Reasonable to continue maintenance Keppra while admitted, but would not continue on discharge since she has had only one seemingly provoked seizure - Agree with increased dose of Thiamine - Continue CIWA protocol Subjective Date/time seen: 06/06/23 12:26 Interval history: Ms. Awad is a 37 year old female with a history of polysubstance use, alcohol dependence presenting for evaluation of AMS. Per chart review patient was confused on day of presentation, as noted by her roommate. When she arrived to [facility] she was still encephalopathic. She had a CT head that showed subtle bilateral hypodensities of the frontal lobe white matter. She was found to have a UTI so she was started on antibiotics. MRI brain was read as extensive nonspecific cerebral white matter disease. Lumbar puncture was done. CSF showed normal cell count and protein level. CSF culture is negative. Routine EEG showed diffuse slowing but no epileptiform features. Her blood pressure has not been elevated during this admission. Her urine drug screen was positive for only barbiturates. She does not have any medications listed that would cause PRES. Last night, she had seizure-like activity. She was tachycardic and had tremulousness with reported tonic clonic activity of the left side, and unresponsive to noxius stimuli. This lasted about 1 min and self-resolved. Due to increasing agitation and tremulousness, she received 4.5mg Ativan total, which seemed to calm down some of the movements. Additional lab work was obtained. Her B12 is normal as is TSH. Thiamine level is pending. Her thiamine dose was increased from 100mg daily to 500mg TID x 5 days. She was transferred to IMU status and has also been started on maintenance Keppra. Review of Systems Review of Systems: ROS unobtainable: Yes unobtainable due to mental status Exam Const: General: no acute distress HENMT: Mouth: Yes dry mucous membranes Eyes: Pupils: Equal, round and reactive pupils present Resp: Effort & Inspection: normal respiratory effort Skin: General skin exam: normal color Neuro: Other: AOx0, PERRL, face appears symmetric, did follow commands intermittently (wiggled toes on command), no spontaneous eye opening or vocalization. She did move all extremities against gravity fairly equally. She did respond to noxious stimuli in the lower extremities. She is tremulous in the upper extremities with increased tone throughout. Extrem: General: normal to inspection Objective Data Vital Signs
--- NOTE | 2023-06-06 12:46 | PCPTNOTE ---
Patient transferred to a different room today. Physical therapy services will be held for today.
--- NOTE | 2023-06-06 13:04 | PCSTNOTE ---
BACON SKINNER attempted bedside swallow evaluation on 06/06 at 13:00. Pt was asleep and nurse noted increased confusion and decreased ability to follow commands throughout the day.
[2023-06-06] MEDS: DEXTROSE 5% IVPB (13:07)
[2023-06-06] MEDS: ACYCLOVIR SODIUM IVPB (13:07)
[2023-06-06] MEDS: WATER IVPB (13:07)
[2023-06-06 13:35] LABS: Glucose Point of Care 101 mg/dl (65-105)
[2023-06-06] MEDS: AMPICILLIN 2 GM/NS 100 ML 2 GM/100 ML BAG IVPB ×3 (13:41→21:48)
[2023-06-06 17:23] LABS: Treponema pallidum Ab FTA ABS Nonreactive (Nonreactive)
[2023-06-06 17:59] LABS: Herpes Simplex Type 1 DNA PCR Not Detected (Not Detected); Herpes Simplex Type 2 DNA PCR Not Detected (Not Detected)
[2023-06-06 18:59] LABS: Glucose Point of Care 140 mg/dl (65-105)
[2023-06-06 20:34] LABS: Vancomycin Trough 11.7 ug/mL (10.0-20.0)
[2023-06-06] MEDS: VANCOMYCIN 1,250 MG/NS 250 ML 1,250 MG/250 ML BAG 166.67 MG IVPB (22:38)
[2023-06-07] VITALS (66 sets, daily range): BP systolic 94–164; BP diastolic 57–101; PULSE 65–136; RESP 14–31; TEMP 36.7–37.3; O2SAT 90–100
[2023-06-07] MEDS: AMPICILLIN 2 GM/NS 100 ML 2 GM/100 ML BAG IVPB ×3 (00:52→08:12)
[2023-06-07 01:00] LABS: Glucose Point of Care 106 mg/dl (65-105)
[2023-06-07] MEDS: THIAMINE 500 MG/NS 100 ML 500 MG/100 ML BAG 200 MG IVPB ×3 (04:00→20:59)
[2023-06-07 04:59] LABS: Basophils Absolute Auto 0.1 K/mm3 (0.0-0.1); Basophils Percent Auto 0.6 % (0.2-1.2); Eosinophils Absolute Auto 0.1 K/mm3 (0-0.3); Eosinophils Percent Auto 1.3 % (0-4.4); Hematocrit 33.5 % (37.0-47.0); Hemoglobin 11.1 g/dL (12.0-15.0); Immature Granulocyte Absolute 0.04 K/mm3 (0.00-0.031); Immature Granulocyte Percent A 0.5 % (0-0.5); Lymphocytes Absolute Auto 0.98 K/mm3 (0.9-3.2); Lymphocytes Percent Auto 12.4 % (18.3-44.2); Mean Corpuscular HGB Conc 33.1 g/dl (32-36); Mean Corpuscular Hemoglobin 31.1 pg (26-34); Mean Corpuscular Volume 93.8 fl (80-100); Monocytes Absolute Auto 0.7 K/mm3 (0.1-0.6); Monocytes Percent Auto 8.7 % (2.6-8.5); Neutrophils Absolute Auto 6.1 K/mm3 (1.3-6.7); Neutrophils Percent Auto 76.5 % (45.5-73.1); Platelet Count Result 265 k/mm3 (150-375); Red Blood Count 3.57 M/mm3 (4.2-5.4); Red Cell Distribution Width 12.3 % (11.5-14.5); White Blood Count 7.9 K/mm3 (4.5-10.0)
[2023-06-07 05:22] LABS: Albumin Level 3.9 g/dL (3.5-5.1); Anion Gap 8 mmol/L (8-16); Blood Urea Nitrogen 2 mg/dL (7-17); CRP 0.7 mg/dL (<1.0); Calcium 8.6 mg/dL (8.4-10.2); Carbon Dioxide 22 mmol/L (22-30); Chloride 103 mmol/L (98-107); Estimated CRCL calculation 145 ml/min; Estimated Glomerular Filt Rate > 60; Glucose 98 mg/dL (65-110); Magnesium 1.7 mg/dL (1.6-2.3); Phosphorus 3.4 mg/dL (2.5-4.5); Potassium 4.2 mmol/L (3.4-5.0); Sodium 133 mmol/L (137-145)
[2023-06-07] MEDS: VANCOMYCIN 1,250 MG/NS 250 ML 1,250 MG/250 ML BAG 166.67 MG IVPB (05:57)
[2023-06-07] MEDS: cefTRIAXone 2 GM/NS 100 ML 2 GM/100 ML BAG IVPB (05:58)
[2023-06-07] MEDS: DEXTROSE 5%/0.9% SOD CHL 1,000 ML 70 ML IV CONT ×2 (07:34→21:00)
[2023-06-07 08:05] LABS: Rapid Plasma Reagin Non-Reactive (NonReactive)
[2023-06-07 08:15] LABS: Epstein Barr Virus DNA PCR Not Detected (Not Detected); Source Epstein Barr Virus CSF
[2023-06-07] MEDS: levETIRAcetam 500MG/NACL 100ML 500 MG/100 ML BAG 400 MG IVPB ×2 (09:14→20:59)
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
--- NOTE | 2023-06-07 09:21 | PCPTNOTE ---
HOLD PT due to decline in status; EMR reviewed, discussed pt with MAXX Stock-- she stated HOLD due to pt status. Will attempt to contact and obtain PT d/c orders.
--- NOTE | 2023-06-07 11:24 | PCOTNOTE ---
Checked on patient after moving to ICU. Per RN, patient is not appropriate at this time. Will be obtaining D/C orders.
[2023-06-07] MEDS: LORazepam INJ (*CRX) 2 MG/ML VIAL 1 MG IV PUSH ×3 (11:26→22:03)
[2023-06-07] MEDS: ENOXAPARIN 40 MG/0.4 ML SYRINGE SUB-Q (11:26)
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
[2023-06-07] MEDS: ACETAMINOPHEN ELIXIR 325 MG/10.15 ML UDC 650 MG FEED TUBE (12:19)
--- NOTE | 2023-06-07 12:38 | PCNFU ---
Nutrition Follow-Up Complete: Inadequate oral intake related to mental status as evidenced by NPO 3 days. Goal: Oral intake to improve to at least 50% meals and supplements Safe swallowing patient is not progressing towards goal. New goal: Meet estimated nutritional needs. Pt current nutrition is Jevity 1.2. Nutrition Recommendations: Goal rate increased to 65 ml/hr. Last recorded weight is 62.9 kg. Bowel Motility:No Bm reported. Labs Reviewed:Bun 2, Cr 0.4,Na 133 Meds Noted:Keppra, Thiamine, Rocephin, Vancomycin, Dextrose Skin:WNL Additional Notes: Diet order changing to NGT feedings of Jevity 1.2 at 10 ml/hr increased by q 1 hour to goal rate of 65 ml/hr. Goal rate providing 1716 kcals/79 gms protein/1154 ml water. Tube feeding meeting 100% caloric needs at 28 kcal/kg and 100% needs at 1.0-1.2 kcal/kg. Flush 30 ml q 4 hours. Tube feeding order as appropriate. Monitoring swallowing function, intakes, labs, weights, supplement tolerance, plan of care every Saturday and Saturday.
[2023-06-07 13:26] LABS: Glucose Point of Care 141 mg/dl (65-105)
[2023-06-07 18:36] LABS: Glucose Point of Care 122 mg/dl (65-105)
[2023-06-08] VITALS (50 sets, daily range): BP systolic 91–132; BP diastolic 57–80; PULSE 74–126; RESP 16–28; TEMP 35.9–37.2; O2SAT 96–100
[2023-06-08 01:03] LABS: Glucose Point of Care 106 mg/dl (65-105)
[2023-06-08 04:42] LABS: Basophils Absolute Auto 0.1 K/mm3 (0.0-0.1); Basophils Percent Auto 1.2 % (0.2-1.2); Eosinophils Absolute Auto 0.1 K/mm3 (0-0.3); Eosinophils Percent Auto 1.4 % (0-4.4); Hematocrit 37.8 % (37.0-47.0); Hemoglobin 11.7 g/dL (12.0-15.0); Immature Granulocyte Absolute 0.03 K/mm3 (0.00-0.031); Immature Granulocyte Percent A 0.4 % (0-0.5); Lymphocytes Absolute Auto 1.44 K/mm3 (0.9-3.2); Lymphocytes Percent Auto 17.1 % (18.3-44.2); Mean Corpuscular Hemoglobin 31.7 pg (26-34); Mean Corpuscular Volume 102.4 fl (80-100); Mean Platelet Volume 11.1 fl (7.4-10.4); Monocytes Absolute Auto 0.9 K/mm3 (0.1-0.6); Monocytes Percent Auto 10.4 % (2.6-8.5); Neutrophils Absolute Auto 5.8 K/mm3 (1.3-6.7); Neutrophils Percent Auto 69.5 % (45.5-73.1); Platelet Count Result 175 k/mm3 (150-375); Red Blood Count 3.69 M/mm3 (4.2-5.4); Red Cell Distribution Width 12.7 % (11.5-14.5); White Blood Count 8.4 K/mm3 (4.5-10.0)
[2023-06-08 04:52] LABS: Albumin Level 3.4 g/dL (3.5-5.1); Anion Gap 6 mmol/L (8-16); Blood Urea Nitrogen 3 mg/dL (7-17); Calcium 8.4 mg/dL (8.4-10.2); Carbon Dioxide 21 mmol/L (22-30); Chloride 104 mmol/L (98-107); Estimated CRCL calculation 149 ml/min; Estimated Glomerular Filt Rate > 60; Glucose 133 mg/dL (65-110); Magnesium 1.9 mg/dL (1.6-2.3); Phosphorus 3.5 mg/dL (2.5-4.5); Potassium 3.1 mmol/L (3.4-5.0); Sodium 131 mmol/L (137-145)
[2023-06-08] MEDS: THIAMINE 500 MG/NS 100 ML 500 MG/100 ML BAG 200 MG IVPB ×3 (05:14→20:09)
[2023-06-08] MEDS: levETIRAcetam 500MG/NACL 100ML 500 MG/100 ML BAG 400 MG IVPB ×2 (08:28→20:09)
[2023-06-08] MEDS: ENOXAPARIN 40 MG/0.4 ML SYRINGE SUB-Q (08:30)
[2023-06-08] MEDS: ACETAMINOPHEN ELIXIR 325 MG/10.15 ML UDC 650 MG FEED TUBE ×2 (08:31→16:22)
[2023-06-08] MEDS: POTASSIUM CHLORIDE 20 MEQ PACKET (FOR LIQUID) 40 MEQ FEED TUBE (08:31)
[2023-06-08] MEDS: MAGNESIUM SULF 2 GM/WATER 50ML 2 GM/50 ML BAG IVPB (09:01)
[2023-06-08 11:44] LABS: Glucose Point of Care 164 mg/dl (65-105)
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
[2023-06-08 15:24] LABS: VDRL Quantitative CSF Nonreactive (Nonreactive)
[2023-06-08 18:15] LABS: Glucose Point of Care 128 mg/dl (65-105)
[2023-06-09] VITALS (14 sets, daily range): BP systolic 97–129; BP diastolic 57–99; PULSE 70–137; RESP 18–24; TEMP 36.6–37.9; O2SAT 96–99
[2023-06-09 00:29] LABS: Glucose Point of Care 129 mg/dl (65-105)
[2023-06-09 04:27] LABS: Basophils Absolute Auto 0.1 K/mm3 (0.0-0.1); Basophils Percent Auto 0.3 % (0.2-1.2); Eosinophils Absolute Auto 0.1 K/mm3 (0-0.3); Eosinophils Percent Auto 0.4 % (0-4.4); Hematocrit 35.2 % (37.0-47.0); Hemoglobin 11.9 g/dL (12.0-15.0); Immature Granulocyte Absolute 0.05 K/mm3 (0.00-0.031); Immature Granulocyte Percent A 0.3 % (0-0.5); Lymphocytes Absolute Auto 1.38 K/mm3 (0.9-3.2); Mean Corpuscular HGB Conc 33.8 g/dl (32-36); Mean Corpuscular Hemoglobin 31.9 pg (26-34); Mean Corpuscular Volume 94.4 fl (80-100); Mean Platelet Volume 9.8 fl (7.4-10.4); Monocytes Absolute Auto 1.3 K/mm3 (0.1-0.6); Monocytes Percent Auto 8.5 % (2.6-8.5); Neutrophils Absolute Auto 12.4 K/mm3 (1.3-6.7); Neutrophils Percent Auto 81.5 % (45.5-73.1); Platelet Count Result 326 k/mm3 (150-375); Red Blood Count 3.73 M/mm3 (4.2-5.4); Red Cell Distribution Width 12.7 % (11.5-14.5); White Blood Count 15.3 K/mm3 (4.5-10.0)
[2023-06-09 04:42] LABS: Alanine Aminotransferase 21 U/L (6-35); Albumin Level 4.2 g/dL (3.5-5.1); Alkaline Phosphatase 53 U/L (38-126); Anion Gap 5 mmol/L (8-16); Aspartate Amino Transferase 29 U/L (14-36); Bilirubin,Total 0.4 mg/dL (0.2-1.3); Blood Urea Nitrogen 7 mg/dL (7-17); Calcium 9.1 mg/dL (8.4-10.2); Carbon Dioxide 25 mmol/L (22-30); Chloride 101 mmol/L (98-107); Estimated CRCL calculation 123 ml/min; Estimated Glomerular Filt Rate > 60; Glucose 118 mg/dL (65-110); Phosphorus 4.1 mg/dL (2.5-4.5); Potassium 4.2 mmol/L (3.4-5.0); Sodium 131 mmol/L (137-145)
[2023-06-09] MEDS: THIAMINE 500 MG/NS 100 ML 500 MG/100 ML BAG 200 MG IVPB ×3 (04:43→20:13)
[2023-06-09] MEDS: ACETAMINOPHEN ELIXIR 325 MG/10.15 ML UDC 650 MG FEED TUBE (06:45)
[2023-06-09] MEDS: ENOXAPARIN 40 MG/0.4 ML SYRINGE SUB-Q (09:52)
[2023-06-09] MEDS: levETIRAcetam 500MG/NACL 100ML 500 MG/100 ML BAG 400 MG IVPB ×2 (09:52→20:13)
[2023-06-09 13:19] LABS: Glucose Point of Care 102 mg/dl (65-105)
[2023-06-09] MEDS: LORazepam INJ (*CRX) 2 MG/ML VIAL 1 MG IV PUSH ×2 (13:35→20:06)
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
[2023-06-09 18:35] LABS: Glucose Point of Care 117 mg/dl (65-105)
[2023-06-09] MEDS: OLANZapine 5 MG, WATER, STERILE FOR INJECTION 2.1 ML IM (23:35)
[2023-06-10] VITALS (13 sets, daily range): BP systolic 104–115; BP diastolic 68–86; PULSE 80–100; RESP 16–23; TEMP 36.6–37.2; O2SAT 97–100
[2023-06-10 01:19] LABS: Appearance Urine Clear (Clear); Bilirubin Urine Negative (Negative); Blood Urine Negative (Negative); Color Urine Yellow (Yellow); Glucose Urine UA Negative (Negative); Ketones Urine Negative (Negative); Leukocyte Esterase Ur Negative LEU/UL (Negative); Nitrate Urine Negative (Negative); Protein Urine Negative (Negative); Specific Grav Ur 1.005 (1.001-1.035); Urobilinogen Urine 0.2 mg/dL (<2.0)
[2023-06-10 01:22] LABS: Glucose Point of Care 109 mg/dl (65-105)
[2023-06-10 01:27] LABS: Add Urine Microscopic? NO
[2023-06-10] MEDS: THIAMINE 500 MG/NS 100 ML 500 MG/100 ML BAG 200 MG IVPB ×3 (04:18→21:26)
[2023-06-10 04:48] LABS: Basophils Absolute Auto 0.1 K/mm3 (0.0-0.1); Basophils Percent Auto 0.5 % (0.2-1.2); Eosinophils Absolute Auto 0.1 K/mm3 (0-0.3); Eosinophils Percent Auto 0.9 % (0-4.4); Hematocrit 39.3 % (37.0-47.0); Hemoglobin 12.8 g/dL (12.0-15.0); Immature Granulocyte Absolute 0.04 K/mm3 (0.00-0.031); Immature Granulocyte Percent A 0.4 % (0-0.5); Lymphocytes Absolute Auto 1.75 K/mm3 (0.9-3.2); Lymphocytes Percent Auto 16.8 % (18.3-44.2); Mean Corpuscular HGB Conc 32.6 g/dl (32-36); Mean Corpuscular Hemoglobin 31.5 pg (26-34); Mean Corpuscular Volume 96.8 fl (80-100); Mean Platelet Volume 9.9 fl (7.4-10.4); Monocytes Absolute Auto 0.9 K/mm3 (0.1-0.6); Monocytes Percent Auto 8.6 % (2.6-8.5); Neutrophils Absolute Auto 7.6 K/mm3 (1.3-6.7); Neutrophils Percent Auto 72.8 % (45.5-73.1); Platelet Count Result 299 k/mm3 (150-375); Red Blood Count 4.06 M/mm3 (4.2-5.4); White Blood Count 10.4 K/mm3 (4.5-10.0)
[2023-06-10 04:57] LABS: Anion Gap 5 mmol/L (8-16); Blood Urea Nitrogen 9 mg/dL (7-17); Calcium 9.1 mg/dL (8.4-10.2); Carbon Dioxide 27 mmol/L (22-30); Chloride 98 mmol/L (98-107); Estimated CRCL calculation 149 ml/min; Estimated Glomerular Filt Rate > 60; Glucose 92 mg/dL (65-110); Potassium 3.9 mmol/L (3.4-5.0); Sodium 130 mmol/L (137-145)
[2023-06-10 06:38] LABS: Glucose Point of Care 116 mg/dl (65-105)
[2023-06-10] MEDS: levETIRAcetam 500MG/NACL 100ML 500 MG/100 ML BAG 400 MG IVPB ×2 (09:44→21:30)
[2023-06-10] MEDS: ENOXAPARIN 40 MG/0.4 ML SYRINGE SUB-Q (09:44)
--- NOTE | 2023-06-10 10:41 | PCNFU ---
Nutrition Follow-Up Complete: Inadequate oral intake related to mental status as evidenced by NPO 3 days. Goal: Meet estimated nutritional needs. Pt current nutrition is Jevity 1.2 at 65 ml/hr. Last recorded weight is 61.4 kg. Bowel Motility: No BM reported. Labs Reviewed: Na 130, Cr 0.4,Glu 116 Meds Noted:Keppra, Vancomycin, Thiamine, Lovenox Skin: WNL Additional Notes: Patient remains on NGT feedings of Jevity 1.2 at 65 ml/hr and tolerating per nursing. Tube feedings providing 1716 kcals/79 gms protein/1154 ml water. Flush 30 ml q 4 hours. Agree with diet orders. Monitoring swallowing function, intakes, labs, weights, supplement tolerance, plan of care every Saturday and Saturday.
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
[2023-06-10 18:08] LABS: Glucose Point of Care 123 mg/dl (65-105)
[2023-06-11] VITALS (12 sets, daily range): BP systolic 93–121; BP diastolic 70–82; PULSE 76–102; RESP 12–20; TEMP 36.6–37.3; O2SAT 97–100; BMI 10.0
[2023-06-11 00:28] LABS: Glucose Point of Care 128 mg/dl (65-105)
[2023-06-11] MEDS: THIAMINE 500 MG/NS 100 ML 500 MG/100 ML BAG 200 MG IVPB (04:51)
[2023-06-11 06:02] LABS: Glucose Point of Care 109 mg/dl (65-105)
[2023-06-11] MEDS: levETIRAcetam 500MG/NACL 100ML 500 MG/100 ML BAG 400 MG IVPB ×2 (08:36→20:50)
[2023-06-11] MEDS: ENOXAPARIN 40 MG/0.4 ML SYRINGE SUB-Q (08:37)
--- NOTE | 2023-06-11 11:04 | PCNFU ---
Nutrition Follow-Up Complete: Inadequate oral intake related to mental status as evidenced by NPO 3 days. Goal: Oral intake to improve to at least 50% meals and supplements Safe swallowing Patient is progressing towards goal. We will continue current goal. Pt current nutrition is Minced and Moist, Level 5. Nutrition Recommendation: Ensure Compact BID. Last recorded weight is 61.6 kg. Bowel Motility:+Bm reported 06/11 Labs Reviewed:Glu 116, Na 130 Meds Noted:Lovenox, Keppra Skin: WNL Additional Notes: Patient had speech evaluation today recommending Minced and Moist, Level 5 and advancing as tolerated. Diet order have been changed to reflex recommendations. Diet supplements of Ensure compact recommended BID for additional 220 kcals and 9 gms protein. Agree with diet orders. Monitoring swallowing function, intakes, labs, weights, supplement tolerance, plan of care every 3 days.
--- NOTE | 2023-06-11 11:05 | WPDNEUROPN ---
Progress Note: A&P Assessment and Plan (1) Acute metabolic encephalopathy: Code(s): G93.41 - Metabolic encephalopathy Status: Acute (2) Alcohol dependence: Qualifiers: Substance use status: in withdrawal Complication of substance-induced condition: with unspecified complication Qualified Code(s): F10.239 - Alcohol dependence with withdrawal, unspecified Code(s): F10.20 - Alcohol dependence, uncomplicated Status: Acute (3) UTI (urinary tract infection): Qualifiers: Hematuria presence: with hematuria Urinary tract infection type: acute cystitis Qualified Code(s): N30.01 - Acute cystitis with hematuria Code(s): N39.0 - Urinary tract infection, site not specified Status: Acute Plan Ms. Awad is a 37 year old female with a history of polysubstance abuse and alcohol dependence presenting with encephalopathy. MRI brain shows extensive white matter disease that is suggest of leukoencephalopathy of undetermined etiology. There was no contrast enhancement to suggest active inflammation or infection, although there were extensive white matter changes. CSF studies were also not suggestive of active inflammation or infection. She is not on any medications that would cause PRES and her blood pressure has not been elevated during this admission. 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 Course has been complicated by possible seizure. There has been some improvement over the past few days in her mentation. It's been a little over a week since her last MRI. Would be worth repeating MRI brain with and without contrast to assess for any progression or resolution of white matter changes that were noted on initial MRI. Suspect these changes to be chronic since there was no evidence of enhancement, but still worth re-evaluating since is still not back to baseline. I am not sure what the utility of repeating an EEG would be. She has not had any additional seizures since the initial event. - Repeat MRI brain with and without contrast - Check ESR/CRP Subjective Date/time seen: 06/11/23 11:05 Interval history: Ms. Awad is a 37 year old female with a history of polysubstance use, alcohol dependence presenting for evaluation of AMS. Per chart review patient was confused on day of presentation, as noted by her roommate. When she arrived to [place] ED she was still encephalopathic. She had a CT head that showed subtle bilateral hypodensities of the frontal lobe white matter. She was found to have a UTI so she was started on antibiotics. MRI brain was read as extensive nonspecific cerebral white matter disease. Lumbar puncture was done. CSF showed normal cell count and protein level. CSF culture and HSV PCR is negative. Additional lab work that has come back negative is RPR, HIV, EBV, Cryptococcus, [place] virus. Lyme testing is pending. Blood and urine cultures are negative. Routine EEG showed diffuse slowing but no epileptiform features. Her blood pressure has not been elevated during this admission. Her urine drug screen was positive for only barbiturates. She does not have any medications listed that would cause PRES. On 06/05, she had seizure-like activity. She was tachycardic and had tremulousness with reported tonic clonic activity of the left side, and unresponsive to noxious stimuli. This lasted about 1 min and self-resolved. Due to increasing agitation and tremulousness, she received 4.5mg Ativan total, which seemed to calm down some of the movements. Additional lab work was obtained. Her B12/folate is normal as is TSH. Thiamine level is sill pending. Her thiamine dose was increased from 100mg daily to 500mg TID x 5 days. She was transferred to IMU status and has also been started on maintenance Keppra. Review of Systems Review of Systems: ROS unobtainable: Yes unobtainable due to medical condition and unobtainable due
[2023-06-11] MEDS: PROPRANOLOL HCL 10 MG TABLET PO ×2 (11:50→17:30)
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
--- NOTE | 2023-06-11 12:32 | PCSTNOTE ---
Please refer to the Bedside Swallow Evaluation in the EMR. Please note, silent aspiration cannot be ruled out at bedside.
[2023-06-12] VITALS (9 sets, daily range): BP systolic 92–102; BP diastolic 56–75; PULSE 63–101; RESP 16–20; TEMP 36.6–37.1; O2SAT 98–100
[2023-06-12 05:11] LABS: Anion Gap 7 mmol/L (8-16); Blood Urea Nitrogen 20 mg/dL (7-17); CRP 2.7 mg/dL (<1.0); Carbon Dioxide 31 mmol/L (22-30); Chloride 96 mmol/L (98-107); Estimated CRCL calculation 149 ml/min; Estimated Glomerular Filt Rate > 60; Glucose 95 mg/dL (65-110); Potassium 4.2 mmol/L (3.4-5.0); Sodium 134 mmol/L (137-145)
[2023-06-12 05:13] LABS: Basophils Absolute Auto 0.1 K/mm3 (0.0-0.1); Basophils Percent Auto 0.8 % (0.2-1.2); Eosinophils Absolute Auto 0.2 K/mm3 (0-0.3); Eosinophils Percent Auto 1.9 % (0-4.4); Hematocrit 44.3 % (37.0-47.0); Hemoglobin 14.4 g/dL (12.0-15.0); Immature Granulocyte Absolute 0.06 K/mm3 (0.00-0.031); Immature Granulocyte Percent A 0.6 % (0-0.5); Immature Platelet Fraction Pct 3.9 % (0.9-11.2); Lymphocytes Absolute Auto 2.11 K/mm3 (0.9-3.2); Lymphocytes Percent Auto 20.8 % (18.3-44.2); Mean Corpuscular HGB Conc 32.5 g/dl (32-36); Mean Corpuscular Hemoglobin 31.4 pg (26-34); Mean Corpuscular Volume 96.5 fl (80-100); Mean Platelet Volume 10.2 fl (7.4-10.4); Monocytes Absolute Auto 0.8 K/mm3 (0.1-0.6); Monocytes Percent Auto 7.7 % (2.6-8.5); Neutrophils Absolute Auto 6.9 K/mm3 (1.3-6.7); Neutrophils Percent Auto 68.2 % (45.5-73.1); Platelet Count Result 388 k/mm3 (150-375); Red Blood Count 4.59 M/mm3 (4.2-5.4); Red Cell Distribution Width 12.9 % (11.5-14.5); White Blood Count 10.1 K/mm3 (4.5-10.0)
[2023-06-12 06:32] LABS: Erythrocyte Sedimentation Rate 26 mm/hr (0-20)
[2023-06-12] MEDS: PROPRANOLOL HCL 10 MG TABLET PO ×3 (06:47→18:32)
[2023-06-12] MEDS: ENOXAPARIN 40 MG/0.4 ML SYRINGE SUB-Q (08:04)
[2023-06-12] MEDS: levETIRAcetam 500MG/NACL 100ML 500 MG/100 ML BAG 400 MG IVPB ×2 (08:04→20:50)
[2023-06-12] MEDS: VENLAFAXINE HCL XR 75 MG CAP.ER.24H 150 MG PO (08:04)
[2023-06-12] MEDS: LORazepam INJ (*CRX) 2 MG/ML VIAL 1 MG IV PUSH (08:58)
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
--- NOTE | 2023-06-12 12:25 | WPDNEUROPN ---
Progress Note: A&P Assessment and Plan (1) Acute metabolic encephalopathy: Code(s): G93.41 - Metabolic encephalopathy Status: Acute (2) Alcohol dependence: Qualifiers: Substance use status: in withdrawal Complication of substance-induced condition: with unspecified complication Qualified Code(s): F10.239 - Alcohol dependence with withdrawal, unspecified Code(s): F10.20 - Alcohol dependence, uncomplicated Status: Acute (3) UTI (urinary tract infection): Qualifiers: Hematuria presence: with hematuria Urinary tract infection type: acute cystitis Qualified Code(s): N30.01 - Acute cystitis with hematuria Code(s): N39.0 - Urinary tract infection, site not specified Status: Acute Plan Ms. Awad is a 37 year old female with a history of polysubstance abuse and alcohol dependence presenting with encephalopathy. MRI brain shows extensive white matter disease that is suggest of leukoencephalopathy of undetermined etiology. There was no contrast enhancement to suggest active inflammation or infection, although there were extensive white matter changes. CSF studies were also not suggestive of active inflammation or infection. She is not on any medications that would cause PRES and her blood pressure has not been elevated during this admission. 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 Although, there was some question about whether patient has been sober over the last month or not. UDS was only positive for barbiturates. Course has been complicated by possible seizure. There has been some mild improvement over the past few days in her mentation. It's been a little over a week since her last MRI. Decision was made to repeat MRI brain with and without contrast to assess for any progression or resolution of white matter changes that were noted on initial MRI. The MRI is unchanged. Suspect these changes to be chronic since there was no evidence of enhancement. Inflammatory markers are slightly elevated. Etiology is unclear. Infection has been ruled out. Imaging doesn't necessarily fit with autoimmune encephalitis or a vasculitis type picture and CSF did not show any inflammatory changes, but these are also considerations since patient's mental status has not dramatically changed. Given lack of substantial improvement, I think it would be worth transferring patient to a tertiary care center for any further work-up of the aforementioned conditions. Would expect more significant improvement if this is all related to substance use. Subjective Date/time seen: 06/12/23 12:25 Interval history: Ms. Awad is a 37 year old female with a history of polysubstance use, alcohol dependence presenting for evaluation of AMS. Per chart review patient was confused on day of presentation, as noted by her roommate. When she arrived to [facility] ED she was still encephalopathic. She had a CT head that showed subtle bilateral hypodensities of the frontal lobe white matter. She was found to have a UTI so she was started on antibiotics. MRI brain was read as extensive nonspecific cerebral white matter disease. Lumbar puncture was done. CSF showed normal cell count and protein level. CSF culture and HSV PCR is negative. Additional lab work that has come back negative is RPR, HIV, EBV, Cryptococcus, [place] virus. Lyme testing is pending. Blood and urine cultures are negative. Routine EEG showed diffuse slowing but no epileptiform features. Her blood pressure has not been elevated during this admission. Her urine drug screen was positive for only barbiturates. She does not have any medications listed that would cause PRES. On 06/05, she had seizure-like activity. She was tachycardic and had tremulousness with reported tonic clonic activity of the left side, and unresponsive to noxious stimuli. This lasted about 1 min and self-resolved. Due to increasing agita
[2023-06-12] MEDS: ONDANSETRON INJ 4 MG/2 ML VIAL IV PUSH (12:39)
--- NOTE | 2023-06-12 18:51 | PC.NURSE ---
Lizbeth Roca here to visit patient. Called and verified with mother, Haily, that she is allowed to visit.
[2023-06-12] MEDS: MELATONIN 5 MG TABLET PO (21:09)
[2023-06-13] VITALS (9 sets, daily range): BP systolic 98–120; BP diastolic 60–73; PULSE 60–91; RESP 12–17; TEMP 36.5–36.6; O2SAT 99–100
[2023-06-13] MEDS: PROPRANOLOL HCL 10 MG TABLET PO ×2 (05:33→12:13)
[2023-06-13] MEDS: VENLAFAXINE HCL XR 75 MG CAP.ER.24H 150 MG PO (09:16)
[2023-06-13] MEDS: ACETAMINOPHEN ELIXIR 325 MG/10.15 ML UDC 650 MG FEED TUBE (09:16)
[2023-06-13] MEDS: ENOXAPARIN 40 MG/0.4 ML SYRINGE SUB-Q (09:16)
[2023-06-13] MEDS: levETIRAcetam 500MG/NACL 100ML 500 MG/100 ML BAG 400 MG IVPB (09:16)
--- NOTE | 2023-06-13 10:41 | PCNFU ---
Nutrition Follow-Up Complete: Inadequate oral intake related to mental status as evidenced by NPO 3 days. Goal: Oral intake to improve to at least 50% meals and supplements Safe swallowing Patient is meeting current goal. No new goal. Pt current nutrition is Soft and Bite Sized, Level 6. Last recorded weight is 61.2 kg. Bowel Motility:+BM reported 06/13 Labs Reviewed:Cr 0.4,BUN 20,Na 134 Meds Noted:Keppra,Lovenox Skin: WNL Additional Notes: Patient has upgraded to soft and bite sized, Level 6. Tolerating diet well-50-80% of most meals. Drinking ensure compact BID which is providing and additional 220 kcals and 9 gms protein. Agree with diet orders. Monitoring swallowing function, intakes, labs, weights, supplement tolerance, plan of care Follow up in 5 days
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
[2023-06-13] MEDS: ONDANSETRON INJ 4 MG/2 ML VIAL IV PUSH (17:01)
[2023-06-13] MEDS: MELATONIN 5 MG TABLET PO (20:54)
[2023-06-13] MEDS: levETIRAcetam 500 MG TABLET PO (20:54)
[2023-06-14] VITALS (8 sets, daily range): BP systolic 99–114; BP diastolic 62–80; PULSE 56–78; RESP 14–78; TEMP 36.6–36.9; O2SAT 99–100
[2023-06-14] MEDS: ENOXAPARIN 40 MG/0.4 ML SYRINGE SUB-Q (08:31)
[2023-06-14] MEDS: levETIRAcetam 500 MG TABLET PO ×2 (08:31→21:02)
[2023-06-14] MEDS: VENLAFAXINE HCL XR 75 MG CAP.ER.24H 150 MG PO (08:32)
[2023-06-14] MEDS: PROPRANOLOL HCL 10 MG TABLET PO ×2 (11:50→16:40)
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
[2023-06-14] MEDS: ACETAMINOPHEN 325 MG TABLET 650 MG PO (16:39)
[2023-06-14] MEDS: MELATONIN 5 MG TABLET PO (21:02)
[2023-06-15 05:30] VITALS: BP 117/62; PULSE 66; RESP 17; O2SAT 100
[2023-06-15 05:31] VITALS: PULSE 67
[2023-06-15] MEDS: PROPRANOLOL HCL 10 MG TABLET PO ×2 (05:31→11:16)
[2023-06-15 07:17] LABS: Anion Gap 9 mmol/L (8-16); Blood Urea Nitrogen 22 mg/dL (7-17); Calcium 9.3 mg/dL (8.4-10.2); Carbon Dioxide 30 mmol/L (22-30); Chloride 98 mmol/L (98-107); Estimated CRCL calculation 122 ml/min; Estimated Glomerular Filt Rate > 60; Glucose 94 mg/dL (65-110); Potassium 3.7 mmol/L (3.4-5.0); Sodium 137 mmol/L (137-145)
[2023-06-15 08:00] VITALS: BP 106/62; PULSE 70; RESP 20; TEMP 36.9; O2SAT 97
[2023-06-15] MEDS: levETIRAcetam 500 MG TABLET PO (09:35)
[2023-06-15] MEDS: VENLAFAXINE HCL XR 75 MG CAP.ER.24H 150 MG PO (09:35)
[2023-06-15] MEDS: ENOXAPARIN 40 MG/0.4 ML SYRINGE SUB-Q (09:35)
[2023-06-15 11:16] VITALS: PULSE 73
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
[2023-06-15 13:37] LABS: Influenza A QL RT-PCR Negative (Negative); Influenza B QL RT-PCR Negative (Negative); RSV RNA, RT-PCR Negative (Negative); SARS-CoV-2 RNA PCR Negative (Negative)
[2023-06-15 14:07] VITALS: BP 113/71; PULSE 67; RESP 18; TEMP 36.9; O2SAT 98
[2023-06-16 15:13] LABS: Albumin, CSF 12.6 mg/dL (8.0-42.0); Albumin, Serum 3.3 g/dL (3.6-5.1); IgG Index, CSF 0.68 (<0.70); IgG, CSF 1.8 mg/dL (0.8-7.7); Immunoglobulin G, Serum 697 mg/dL (600-1640); Myelin Basic Protein, CSF <2.0 mcg/L (<=4.0); Oligoclonal Bands (IgG), CSF Absent (Absent)
[2023-06-17 21:36] LABS: Vitamin B1 >1200 nmol/L (8-30)
== END 2023-06-15 14:53 | DRG 871 ==
LOC: ANHED 20:34 → ANH3MED 20:41 → ANHICU 06-06 09:50
PROVIDERS: Internal Medicine; Nurse Practitioner; Admitting Provider Internal Medicine; Emergency Provider Preventive Medicine Aerospace Medicine; Visit Provider Chiropractor
DX: A41.9 Sepsis, unspecified organism (principal); G92.8 Other toxic encephalopathy; R65.21 Severe sepsis with septic shock; G93.41 Metabolic encephalopathy; N39.0 Urinary tract infection, site not specified; N17.9 Acute kidney failure, unspecified; G31.2 Degeneration of nervous system due to alcohol; E86.0 Dehydration; F10.20 Alcohol dependence, uncomplicated; R00.0 Tachycardia, unspecified; G93.2 Benign intracranial hypertension; R56.9 Unspecified convulsions; F41.9 Anxiety disorder, unspecified; Z87.891 Personal history of nicotine dependence; Z87.820 Personal history of traumatic brain injury; Z91.414 Personal history of adult intimate partner abuse; Z87.828 Personal history of other (healed) physical injury and trauma
CPT/HCPCS: 36415; 62328; 70450; 70553; 71045; 71275; 74174; 76775; 80048; 80053; 80069; 80074; 80202; 80307; 81001; 81003; 81025; 82040; 82042; 82565; 82607; 82746; 82784; 82945; 82948; 83605; 83735; 83873; 83916; 84100; 84157; 84425; 84443; 85025; 85027; 85055; 85610; 85652; 85730; 86038; 86140; 86403; 86592; 86617; 86703; 86780; 87015; 87040; 87070; 87081; 87086; 87102; 87116; 87206; 87255; 87522; 87529; 87637; 87798; 88108; 89051; 92610; 93005; 94640; 95816; 96361; 96365; 96366; 96367; 96375; 96376; 97110; 97162; 97165; 97166; 97530; 97535; 99285; A9270; A9577; G0378; G0432; J0133; J0290; J0696; J1100; J1650; J1953; J2060; J2405; J3370; J3411; J3475; J3480; J7030; J7042; J7060; J7120; Q9967